=== PATIENT | female | born 1995 | race Caucasian/White ===

== ENCOUNTER 2017-12-20 13:16 | Emergency (ER) | payer BC ==
[2017-12-20 13:34] VITALS: BP 140/75
--- NOTE | 2017-12-20 13:43 | UC ---
Complaint Female HPI - HPI Summary HPI Summary: A 22 y/o F presents to [facility] with urinary frequency onset past week. Patient notes that shes urinating a typical amount. She states approx 3 months ago, she was having frequency with some urinary pressure. She was seen at [facility], and they found blood in her urine. They recommended repeat follow-up which she hasnt been able to do. Associated sx: urinary pressure. Denies dysuria, vaginal discharge and bleeding, back pain. MC: 12/02/17. PMHx: ovarian cysts. Non-smoker. Drinks ETOH. No drugs. - History Of Current Complaint Chief Complaint: UCGU Stated Complaint: URINARY COMPLAINT Time Seen by Provider: 12/20/17 13:21 Hx Obtained From: Patient Hx Last Menstrual Period: 12/02 Onset/Duration: Lasting Weeks, Still Present Severity Currently: Moderate Pain Intensity: 5 Pain Scale Used: 0-10 Numeric Associated Signs And Symptoms: Negative: Fever, Back Pain, Vaginal Bleeding/ Discharge, Vaginal Discharge - Allergies/Home Medications Allergies/Adverse Reactions: Allergies Allergy/AdvReac Type Severity Reaction Status Date / Time amoxicillin [From Augmentin] Allergy Intermediate Hives Verified 12/20/17 13:34 clavulanic acid Allergy Intermediate Hives Verified 12/20/17 13:34 [From Augmentin] Home Medications: Home Medications ALPRAZolam [Xanax] 0.5 mg PO SEE INSTRUCTIONS PRN 12/20/17 [History Confirmed ] Etonogestrel [Nexplanon] 68 mg PERCUTAN DAILY WITH MEAL 12/20/17 [History Confirmed 12/20/17] Lurasidone(*) [Latuda] 40 mg PO DAILY WITH MEAL 12/20/17 [History Confirmed ] PMH/Surg Hx/FS Hx/Imm Hx Previously Healthy: Yes Other Respiratory History: neg: COPD Other GI/ History: pos: ovarian cysts - Surgical History Surgical History: None - Family History Known Family History: Positive: Diabetes, Other - lung CA, kidney stones - Social History Occupation: Employed Part-time, Student Lives: Dormitory/Roommates Alcohol Use: Weekly Substance Use Type: None Smoking Status (MU): Never Smoked Tobacco Review of Systems Constitutional: Negative - fever Genitourinary: Negative - vaginal discharge/bleeding, dysuria, Frequency, Other - pos: urinary pressure Musculoskeletal: Negative - back pain All Other Systems Reviewed And Are Negative: Yes Physical Exam - Summary Physical Exam Summary: VITAL SIGNS: Reviewed. GENERAL: Patient is a well-developed and nourished FEMALE who is lying comfortable in the stretcher. Patient is not in any acute respiratory distress. HEAD AND FACE: Normocephalic EYES: PERRLA, EOMI x 2. EARS: Hearing grossly intact. MOUTH: Oropharynx within normal limits. NECK: Supple, trachea is midline, no adenopathy, no JVD, no carotid bruit. CHEST: Symmetric, no tenderness at palpation LUNGS: Clear to auscultation bilaterally. No wheezing or crackles. CVS: Regular rate and rhythm, S1 and S2 present, no murmurs or gallops appreciated. ABDOMEN: Soft, non-tender. Bowel sounds are normal. No abdominal abnormal pulsations. EXTREMITIES: Full ROM in all major joints, no edema, no cyanosis or clubbing. NEURO: Alert and oriented x 3. No acute neurological deficits. Speech is normal and follows commands. SKIN: Dry and warm Triage Information Reviewed: Yes Vital Signs: Initial Vital Signs Temp 98.2 F 12/20/17 13:27 Pulse 85 12/20/17 13:27 Resp 18 12/20/17 13:27 BP 140/75 12/20/17 13:27 Pulse Ox 100 12/20/17 13:27 Vital Signs Reviewed: Yes Complaint Female Dx - Course Course Of Treatment: The patient was found to have increased BP in UC. The patient will follow up with PCP for better control of BP. . Patient is a 22-year-old female who presents to the urgent care with chief complaint of having dysuria and urinary frequency. Urinalysis positive for UTI. Patient was placed in Bactrim. Patient was discharged home with follow-up with PCP. - Differential Dx/Diagnosis Provider Diagnoses: Urinary tract infection Discharge - Sign-Out/Discharge Documenting (check all that apply): Patient Departure - DC All imaging exams completed and their final reports reviewed: No Studies - Discharge Plan Condition: Stable Disposition: HOME Prescriptions: Sulfamethox/Trimethoprim DS* [Bactrim DS 800/160 TAB*] 1 tab PO BID #20 tab Patient Education Materials: Urinary Tract Infection in Women (ED) Referrals: No Primary Care Phys,NOPCP [Primary Care Provider] - [facility] [place] [facility] [Outside] Additional Instructions: Take medications as instructed and adhere to plan Take Acetaminophen or ibuprofen for pain or fever Increase your fluid intake Return to the or go to the emergency department if symptoms worsen Follow-up with primary care physician in next 2-3 days FOLLOW UP WITH YOUR PRIMARY CARE PROVIDER WITHIN ONE WEEK FOR HIGH BLOOD PRESSURE NOTED TODAY. - Billing Disposition and Condition Condition: STABLE Disposition: Home - Attestation Statements Document Initiated by Scribe: Yes Documenting Scribe: Casa Man Provider For Whom Scribe is Documenting (Include Credential): Armand Ralph MD Scribe Attestation: Casa Baires, scribed for Armand Ralph MD on 12/20/17 at 1435. Scribe Documentation Reviewed: Yes Provider Attestation: The documentation as recorded by the Casa sharma accurately reflects the service I personally performed and the decisions made by Armand hudson MD Lab Results - Lab Results Lab Results: 12/20/17 13:39 POC Urine Color Yellow POC Urine Clarity Turbid POC Urine pH 7.0 POC Ur Specif [place] >= 1.030 POC Urine Protein 2+ A POC Ur Glucose (UA) Negative POC Urine Ketones Negative POC Urine Blood 2+ A POC Urine Nitrite Positive A POC Urine Bilirubin Negative POC Urine Urobilinogen 0.2 POC U Leukocyte Esteras 3+ A
--- NOTE | 2017-12-21 16:10 | UC ---
- Progress Note Progress Note: 12/21/2017 Urine culture positive for E.coli. Pt Rx Bactrim PO which cover E.coli. Awaiting for culture sensitivity. No change Sheila Keen PA-C Discharge - Sign-Out/Discharge Documenting (check all that apply): Patient Departure - D/c home All imaging exams completed and their final reports reviewed: No Studies - Discharge Plan Condition: Stable Disposition: HOME Prescriptions: Sulfamethox/Trimethoprim DS* [Bactrim DS 800/160 TAB*] 1 tab PO BID #20 tab Patient Education Materials: Urinary Tract Infection in Women (ED) Referrals: [facility] [place] [facility] [Outside] No Primary Care Phys,NOPCP [Primary Care Provider] - Additional Instructions: Take medications as instructed and adhere to plan Take Acetaminophen or ibuprofen for pain or fever Increase your fluid intake Return to the UC or go to the emergency department if symptoms worsen Follow-up with primary care physician in next 2-3 days FOLLOW UP WITH YOUR PRIMARY CARE PROVIDER WITHIN ONE WEEK FOR HIGH BLOOD PRESSURE NOTED TODAY. - Billing Disposition and Condition Condition: STABLE Disposition: Home
== END 2017-12-20 13:53 | disposition home or self-care (01) ==
LOC: UCEAST 13:16
DX: N39.0 Urinary tract infection, site not specified (principal); R03.0 Elevated blood-pressure reading, without diagnosis of hypertension; B96.20 Unspecified Escherichia coli [E. coli] as the cause of diseases classified elsewhere; Z88.1 Allergy status to other antibiotic agents; Z88.0 Allergy status to penicillin
CPT/HCPCS: 81003; 87077; 87086; 87186; 99212; G0463

== ENCOUNTER 2018-02-03 12:23 | Emergency (ER) | payer BC ==
--- NOTE | 2018-02-03 13:12 | ED ---
Psychiatric Complaint - HPI Summary HPI Summary: Patient is a 23 y/o F w/ c/o alcohol intoxication and SI. She arrived in a wheelchair and was covered in vomit. She states that she wants to . Patient notes that she drank 9 shots of vodka this morning due to failing the NCLEX exam again. In the room, she reports that she feels dizzy. She denies any other attempts of self-harm or consuming any other substances today. On triage, pain is denied, nothing is noted to aggravate/alleviate Sx. Home medications and allergies are reviewed. - History Of Current Complaint Chief Complaint: EDMentalHealth Time Seen by Provider: 02/03/18 12:30 Hx Obtained From: Patient Hx Last Menstrual Period: 12/02 Onset/Duration: Sudden Onset, Lasting Hours, Still Present Severity Currently: None - pain is denied Character: Depressed Aggravating Factor(s): Recent Stress - failing exam Alleviating Factor(s): Nothing Has Suicidal: Reports: Thoughts, With A Plan, Demonstrates Gesture - Allergies/Home Medications Allergies/Adverse Reactions: Allergies Allergy/AdvReac Type Severity Reaction Status Date / Time amoxicillin [From Augmentin] Allergy Intermediate Hives Verified 12/20/17 13:34 clavulanic acid Allergy Intermediate Hives Verified 12/20/17 13:34 [From Augmentin] PMH/Surg Hx/FS Hx/Imm Hx Endocrine/Hematology History: Denies: Hx Diabetes, Hx Thyroid Disease Cardiovascular History: Denies: Hx Hypertension Respiratory History: Denies: Hx Asthma, Hx Chronic Obstructive Pulmonary Disease (COPD) GI History: Denies: Hx Ulcer Infectious Disease History: No Infectious Disease History: Denies: Hx Hepatitis, Hx Human Immunodeficiency Virus (HIV), Traveled Outside the [place] in Last 30 Days - Family History Known Family History: Positive: Diabetes, Other - lung CA, kidney stones - Social History Alcohol Use: Weekly Alcohol Amount: today, 9 shots vodka Substance Use Type: Reports: None Smoking Status (MU): Never Smoked Tobacco Review of Systems Positive: Vomiting, Nausea Neurological: Other - dizziness Positive: Depressed, Other - SI All Other Systems Reviewed And Are Negative: Yes Physical Exam - Summary Physical Exam Summary: Appearance: The patient is well-nourished in no acute distress and in no acute pain. Skin: The skin is warm and dry and skin color reflects adequate perfusion. HEENT: The head is normocephalic and atraumatic. The pupils are equal and reactive. The conjunctivae are clear and without drainage. Nares are patent and without drainage. Mouth reveals moist mucous membranes and the throat is without erythema and exudate. The external ears are intact. The ear canals are patent and without drainage. The tympanic membranes are intact. Neck: The neck is supple with full range of motion and non-tender. There are no carotid bruits. There is no neck vein distension. Respiratory: Chest is non-tender. Lungs are clear to auscultation and breath sounds are symmetrical and equal. Cardiovascular: Heart is regular rate and rhythm. There is no murmur or rub auscultated. There is no peripheral edema and pulses are symmetrical and equal. Abdomen: The abdomen is soft and non-tender. There are normal bowel sounds heard in all four quadrants and there is no organomegaly palpated. Musculoskeletal: There is no back tenderness noted. Extremities are non-tender with full range of motion. There is good capillary refill. There is no peripheral edema or calf tenderness elicited. Neurological: Patient is alert and oriented to person, place and time. The patient has symmetrical motor strength in all four extremities. Cranial nerves are grossly intact. Deep tendon reflexes are symmetrical and equal in all four extremities. Psychiatric: The patient does not exhibit any anxiety. SI expressed. Triage Information Reviewed: Yes Vital Signs On Initial Exam: Initial Vitals Temp Pulse Resp BP Pulse Ox 97.2 F 93 16 143/88 98 02/03/18 12:41 02/03/18 12:41 02/03/18 12:41 02/03/18 12:41 02/03/18 12:41 Vital Signs Reviewed: Yes Diagnostics - Vital Signs Vital Signs Temp Pulse Resp BP Pulse Ox 02/03/18 12:41 97.2 F 93 16 143/88 98 - Laboratory Result Diagrams: 02/03/18 13:24 02/03/18 13:24 Lab Statement: Any lab studies that have been ordered have been reviewed, and results considered in the medical decision making process. Re-Evaluation - Re-Evaluation First Eval Re-Evaluation Time: 16:37 Comment: Patient was medically cleared for MHE. Course/Dx - Course Course Of Treatment: Ms. Christy presented intoxicated and emotionally upset. She has had a situational stressor and got depressed and drank alcohol this morning. There was no sign of trauma and she was allowed to sober up and underwent a mental health eval. They felt that she was appropriate for admission but had no beds and at this point we are awaiting transfer. - Differential Dx/Clinical Impression Provider Diagnosis: Suicidal ideation, Alcohol intoxication, Depression - Physician Notifications Discussed Care Of Patient With: Dejah Mccartney Time Discussed With Above Provider: 19:10 Instructed by Provider To: Other - 1909 - Patient's case was reviewed by Dr. Mccartney. Due to the impulsive and unstable nature of the patient, she cannot be discharged. However, as there [place] no [place] [facility], she will be transferred to another facility. Discharge - Sign-Out/Discharge Documenting (check all that apply): Sign-Out Patient Signing out patient TO: Slim Riggs Receiving patient FROM: Slim Velazquez - Discharge Plan Referrals: No Primary Care Phys,NOPCP [Primary Care Provider] - - Attestation Statements Document Initiated by Scribe: Yes Documenting Scribe: Rome Sanon Provider For Whom Haseeb is Documenting (Include Credential): Slim Velazquez MD Scribe Attestation: Rome Baires , scribed for Slim Velazquez MD on 02/03/18 at 2124. Scribe Documentation Reviewed: Yes Provider Attestation: The documentation as recorded by the Rome sharma accurately reflects the service I personally performed and the decisions made by me, Slim Velazquez MD
[2018-02-03 13:34] LABS: ABS Basophils 0 10^3/ul (0-0.2); ABS Eosinophils 0.1 10^3/ul (0-0.6); ABS Lymphocytes 2.9 10^3/ul (1.0-4.8); ABS Monocytes 0.6 10^3/ul (0-0.8); ABS Neutrophils 4.5 10^3/ul (1.5-7.7); ABS Nucleated RBC 0 10^3/ul; Eosinophil % 1.2 % (0-6); Hematocrit 39 % (35-47); Hemoglobin 12.8 g/dl (12.0-16.0); Mean Corpuscular HGB Conc 33 g/dl (31-36); Mean Corpuscular Hemoglobin 27 pg (27-31); Mean Corpuscular Volume 82 fL (80-97); Mean Platelet Volume 7.5 um3 (7.4-10.4); Nucleated Red Blood Cells % 0.2; Platelet Count 306 10^3/ul (150-450); Red Blood Count 4.74 10^6/ul (4.00-5.40); Red Cell Distribution Width 15 % (10.5-15); White Blood Count 8.2 10^3/ul (3.5-10.8)
[2018-02-03 13:51] LABS: EGFR Non-African American 122.6 (>60)
[2018-02-03 16:49] LABS: Urine Appearance Clear; Urine Blood Negative (Negative); Urine Color Yellow; Urine Ketones Trace (Negative); Urine Protein Negative (Negative); Urine Specific Gravity 1.012 (1.010-1.030); Urine Urobilinogen Negative (Negative)
[2018-02-03] MEDS ORDERED: Ibuprofen TAB* 400 MG ONE (20:07)
[2018-02-03] MEDS ORDERED: Acetaminophen TAB* 325 MG ONE (20:07)
[2018-02-03] MEDS ORDERED: Ondansetron INJ* 2 MG/ML VIAL ONE (20:07)
[2018-02-04 02:04] VITALS: BP 126/72
--- NOTE | 2018-02-04 02:39 | ED ---
Progress - Progress Note Progress Note: Pt has been evaluated and will be transferred to [facility]. Re-Evaluation - Re-Evaluation First Eval Re-Evaluation Time: 16:37 Comment: Patient was medically cleared for MHE. Course/Dx - Course Course Of Treatment: The pt is being transferred to [facility]. - Diagnoses Provider Diagnoses: Suicidal ideation, Alcohol intoxication, Depression - Provider Notifications Time Discussed With Above Provider: 19:10 Discharge - Sign-Out/Discharge Documenting (check all that apply): Patient Departure, Receiving Sign-Out Receiving patient FROM: Slim Velazquez - Discharge Plan Condition: Stable Disposition: [facility] Referrals: [facility] [place] [facility] [Outside] - Attestation Statements Document Initiated by Scribe: Yes Documenting Scribe: Micaela Miles Provider For Whom Scribe is Documenting (Include Credential): Slim Riggs MD. Scribe Attestation: Micaela Baires, scribed for Slim Riggs MD. on 02/04/18 at 0240.
== END 2018-02-04 01:45 | disposition short-term general hospital (02) ==
LOC: ED 12:23
DX: R45.851 Suicidal ideations (principal); F10.129 Alcohol abuse with intoxication, unspecified; F32.9 Major depressive disorder, single episode, unspecified; Z88.1 Allergy status to other antibiotic agents; Z88.0 Allergy status to penicillin; Z79.899 Other long term (current) drug therapy
CPT/HCPCS: 36415; 80053; 80307; 80320; 80329; 81003; 84443; 84702; 85025; 93005; 99285; A9270-GY; G0480; J2405

== ENCOUNTER 2018-06-09 11:37 | Emergency (ER) | payer BC ==
[2018-06-09 11:47] VITALS: BP 136/87
--- NOTE | 2018-06-09 12:20 | UC ---
Throat Pain/Nasal Gen HPI - HPI Summary HPI Summary: 23 y/o female presents to the urgent care c/o sore throat , fatigue for the past week. Pain with swallowing is 3/10. She has low grade fever at the first day of symptoms. She has not taken anything to alleviate symptoms. Her roommate was Dx with [place] and strep 2 days ago. Pt denies fever now, SOB, chest pain, abdominal pain, N/V/D. She has decrease appetite, but she is drinking fluids. c - History of Current Complaint Chief Complaint: UCRespiratory Stated Complaint: THROAT PAIN Time Seen by Provider: 06/09/18 12:18 Hx Obtained From: Patient Hx Last Menstrual Period: 3 wks ago Onset/Duration: Gradual Onset, Lasting Weeks - 1 week Severity: Mild Pain Intensity: 4 - sore throat Pain Scale Used: 0-10 Numeric Cough: Nonproductive Associated Signs & Symptoms: Positive: Dysphagia, Fever - at the beginign of symptoms w/ low grade fever - Epiglottits Risk Factors Epiglottis Risk Factors: Negative - Allergies/Home Medications Allergies/Adverse Reactions: Allergies Allergy/AdvReac Type Severity Reaction Status Date / Time amoxicillin [From Augmentin] Allergy Intermediate Hives Verified 06/09/18 11:47 clavulanic acid Allergy Intermediate Hives Verified 06/09/18 11:47 [From Augmentin] Home Medications: Home Medications ARIPiprazole TAB* [Abilify TAB*] 1 tab PO DAILY 06/09/18 [History Confirmed 01/17] PMH/Surg Hx/FS Hx/Imm Hx Previously Healthy: Yes - Pt denies PMHX - Surgical History Surgical History: None - Family History Known Family History: Positive: Diabetes, Other - lung CA, kidney stones - Social History Occupation: Employed Full-time Lives: With Family Alcohol Use: Occasionally Alcohol Amount: today, 9 shots vodka Substance Use Type: Prescribed Smoking Status (MU): Never Smoked Tobacco Review of Systems All Other Systems Reviewed And Are Negative: Yes Constitutional: Positive: Negative Skin: Positive: Negative Eyes: Positive: Negative ENT: Positive: Sore Throat Respiratory: Positive: Cough - dry Cardiovascular: Positive: Negative, Palpitations Gastrointestinal: Positive: Negative Genitourinary: Positive: Negative Motor: Positive: Negative Neurovascular: Positive: Negative Musculoskeletal: Positive: Myalgia Neurological: Positive: Negative Psychological: Positive: Negative Is Patient Immunocompromised?: No Physical Exam - Summary Physical Exam Summary: VITAL SIGNS: Reviewed. GENERAL: Patient is a well developed and nourished female who is sitting comfortable in the examining table. Patient is not in any acute respiratory distress. HEAD AND FACE: No signs of trauma. No ecchymosis, hematomas or skull depressions. No sinus tenderness. EYES: PERRLA, EOMI x 2, No injected conjunctiva, no nystagmus. No photophobia. EARS: Hearing grossly intact. Ear canals and tympanic membranes are within normal limits. MOUTH: Positive pharynx with no erythema, no exudates, mild palatal petechiae. B/L tonsillar enlargement with no exudate. Uvula in midline. NECK: Supple, trachea is midline, Positive anterior cervical lymphadenopathy, no JVD, no carotid bruit, no c-spine tenderness, neck with full ROM. No meningeal signs, no Kernig's or brudzinskis signs. CHEST: Symmetric, no tenderness at palpation LUNGS: Clear to auscultation bilaterally. No wheezing or crackles. CVS: Regular rate and rhythm, S1 and S2 present, no murmurs or gallops appreciated. ABDOMEN: Soft, non-tender. No signs of distention. No rebound no guarding, and no masses palpated. Bowel sounds are normal. EXTREMITIES: FROM in all major joints, no edema, no cyanosis or clubbing. NEURO: Alert and oriented x 3. No acute neurological deficits. Speech is normal and follows commands. SKIN: Dry and warm Triage Information Reviewed: Yes Vital Signs: Initial Vital Signs Temp 99.0 F 06/09/18 11:44 Pulse 88 06/09/18 11:44 Resp 12 06/09/18 11:44 BP 136/87 06/09/18 11:44 Pulse Ox 100 06/09/18 11:44 Throat Pain/Nasal Course/Dx - Course Course Of Treatment: 23 y/o female presents to the urgent care c/o sore throat , fatigue for the past week. Pain with swallowing is 3/10. She has low grade fever at the first day of symptoms. She has not taken anything to alleviate symptoms. Her roommate was Dx with [place] and strep 2 days ago. Pt denies fever now, SOB, chest pain, abdominal pain, N/V/D. She has decrease appetite, but she is drinking fluids. Hx obtained. Rapid strep ordered, result: negative. Pt declines Monospot to r/o Mononucleosis. Pt w/ a Viral pharyngitis.Pt Rx ibuprofen PO to alleviates symptoms of pain and swelling. Advised on hand washing to avoid spreading. Pt advised to rest, eat well and avoid strenuous exercise. If symptoms do not improve or worsen advised to return to the urgent care or f/u with her PCP for further evaluation and treatment. Pt understood and agreed - Differential Dx/Diagnosis Differential Diagnosis/HQI/PQRI: Influenza, Mononucleosis, Pharyngitis, Sinusitis, Tonsillitis, URI Provider Diagnosis: Viral pharyngitis Discharge - Sign-Out/Discharge Documenting (check all that apply): Patient Departure - d/c home All imaging exams completed and their final reports reviewed: No Studies - Discharge Plan Condition: Stable Disposition: HOME Prescriptions: Ibuprofen TAB* [Motrin TAB* 600 MG] 600 mg PO Q6H PRN #30 tab PRN Reason: Pain Patient Education Materials: Pharyngitis (ED) Referrals: [facility] [place]Outside] - 3 Days Additional Instructions: 1-Please take ibuprofen PO q6-8hrs prn as instructed after meals to alleviate pain and swelling. Increase fluid intake, eat well, rest and avoid strenuous exercise 2-If symptoms do not improve or worsen please return to the urgent care or f/u with your PCP in 3 days for further evaluation and treatment. - Billing Disposition and Condition Condition: STABLE Disposition: Home
== END 2018-06-09 12:42 | disposition home or self-care (01) ==
LOC: UCEAST 11:37
DX: J02.9 Acute pharyngitis, unspecified (principal); Z88.0 Allergy status to penicillin; Z88.8 Allergy status to other drugs, medicaments and biological substances
CPT/HCPCS: 87651; 99212; G0463

== ENCOUNTER 2018-11-23 12:20 | Emergency (ER) | payer BC ==
[2018-11-23 12:30] VITALS: BP 132/90
--- NOTE | 2018-11-23 13:26 | UC ---
FLU HPI - HPI Summary HPI Summary: 23-year-old healthy female who presents with 2 days of cough, congestion, and sore throat. Patient states she noticed myalgias, as well as a dry cough, sinus congestion, and a sore throat. Patient also noticed spots on her tonsils. Patient reports that she feels fatigued. Patient also reporting mild shortness of breath with a dry cough. Patient reports feeling chest tightness with coughing but denies chest pain. No history of cardiac problems in herself or blood clots. Patient denies smoking. - History of Current Complaint Chief Complaint: UCGeneralIllness Stated Complaint: CHEST Time Seen by Provider: 11/23/18 12:33 Hx Last Menstrual Period: 11/19/18 Pain Intensity: 6 - Allergy/Home Medications Allergies/Adverse Reactions: Allergies Allergy/AdvReac Type Severity Reaction Status Date / Time amoxicillin [From Augmentin] Allergy Intermediate Hives Verified 11/23/18 12:30 clavulanic acid Allergy Intermediate Hives Verified 11/23/18 12:30 [From Augmentin] PMH/Surg Hx/FS Hx/Imm Hx Previously Healthy: Yes - Surgical History Surgical History: None - Family History Known Family History: Positive: Diabetes, Other - lung CA, kidney stones - Social History Alcohol Use: Occasionally Alcohol Amount: today, 9 shots vodka Substance Use Type: None Smoking Status (MU): Never Smoked Tobacco Review of Systems All Other Systems Reviewed And Are Negative: Yes ENT: Positive: Sore Throat, Sinus Congestion, Sinus Pain/Tenderness Respiratory: Positive: Shortness Of Breath, Cough Cardiovascular: Positive: Negative Musculoskeletal: Positive: Myalgia Physical Exam - Summary Physical Exam Summary: Constitutional: Well-developed, Well-nourished, Alert. (-) Distressed Skin: Warm, Dry HENT: Normocephalic; Atraumatic. Nasal congestion, tonsillar erythema w/ tonsilloliths Eyes: Conjunctiva normal Neck: Musculoskeletal ROM normal neck. (-) JVD, (-) Stridor Cardio: Rhythm regular, rate normal, Heart sounds normal; Intact distal pulses; Radial pulses are 2+ and symmetric. (-) Murmur Pulmonary/Chest wall: Effort normal. (-) Respiratory distress, (-) Wheezes, (-) Rales Abd: Soft, (-) tenderness, (-) Distension, (-) Guarding, (-) Rebound Musculoskeletal: (-) Edema Lymph: (+) Cervical adenopathy Neuro: Alert, Oriented x3 Psych: Mood and affect Normal Vital Signs: Initial Vital Signs Temp 37.0 C 11/23/18 12:27 Pulse 93 11/23/18 12:27 Resp 17 11/23/18 12:27 BP 132/90 11/23/18 12:27 Pulse Ox 100 11/23/18 12:27 Diagnostics - EKG Cardiac Rate: NL - Time 12:37 PM. Sinus tach rate of 85, T-wave inversions in lead 3 Summary of EKG Findings: 12:37 PM sinus rate 85, normal axis, normal NM and QTc , T-wave inversions in lead III, no ST changes Re-Evaluation - Re-Evaluation First Eval Comment: Chest x-ray without evidence of pneumonia. Patient ambulated in the department without distress patient discharged home with symptomatic control Flu Course/Dx - Course Course Of Treatment: 23-year-old female who presents with URI-like symptoms. Regarding shortness of breath suspect this is all viral upper respiratory given clear lungs, normal vitals and easy work of breathing on exam. We'll check a chest x-ray to rule out pneumonia. EKG sinus without evidence of ischemia and no chest pain. No history of blood clots or risk factors for blood clots, not tachycardic, tachypneic or hypoxic. - Differential Dx/Diagnosis Provider Diagnosis: Upper respiratory infection Discharge - Sign-Out/Discharge Documenting (check all that apply): Patient Departure All imaging exams completed and their final reports reviewed: Yes - Discharge Plan Condition: Stable Disposition: HOME Patient Education Materials: Upper Respiratory Infection (ED) Referrals: [facility] [Outside] Additional Instructions: You were seen in the emergency department for upper respiratory symptoms Your chest x-ray did not show pneumonia. Your heart tracing was normal If any studies were not completed at the time of discharge you will be called with the relevant results. Please follow up with your primary care doctor in next 2-3 days and go to emergency department for chest pain, trouble breathing or worsening or concerning symptoms. - Billing Disposition and Condition Condition: STABLE Disposition: Home
== END 2018-11-23 13:35 | disposition home or self-care (01) ==
LOC: UCEAST 12:20
DX: J06.9 Acute upper respiratory infection, unspecified (principal)
CPT/HCPCS: 71046; 99211; G0463

== ENCOUNTER 2019-07-06 13:04 | Emergency (ER) | payer BC ==
[2019-07-06 13:15] VITALS: BP 135/77
--- NOTE | 2019-07-06 13:28 | UC ---
Back Pain HPI - HPI Summary HPI Summary: patient fell from bar stool approximately 10 day ago and injured "tail bone". has a small black and blue norm on R buttock for few days painful when first standing up and sitting, has to lean to L when sitting to avoid pain, has been taking ibuprofen 600mg with little relief no lower back, neck or thoracic pain, denies head injury denies blood in urine or bowel/bladder incontinence - History of Current Complaint Chief Complaint: UCBackPain Stated Complaint: TAILBONE PAIN FROM FALL Time Seen by Provider: 07/06/19 13:16 Hx Obtained From: Patient Hx Last Menstrual Period: 3 weeks ago ?: No Onset/Duration: Sudden Onset Timing: Intermittent Severity Initially: Severe Severity Currently: Mild Pain Intensity: 0 Back Pain: Is Discrete @ - tail bone Character: Sharp, Throbbing Aggravating Factor(s): Other - sitting, standing up Alleviating Factor(s): Rest, Position, OTC Meds Associated Signs And Symptoms: Positive: Bruising. Negative: Weakness, Abdominal Pain, Bladder Incontinence, Bowel Incontinence - Allergies/Home Medications Allergies/Adverse Reactions: Allergies Allergy/AdvReac Type Severity Reaction Status Date / Time amoxicillin [From Augmentin] Allergy Intermediate Hives Verified 07/06/19 13:15 clavulanic acid Allergy Intermediate Hives Verified 07/06/19 13:15 [From Augmentin] Home Medications: Home Medications Etonogestrel [Nexplanon] 68 mg PERCUTAN DAILY WITH MEAL 12/20/17 [History Confirmed 07/06/19] Ibuprofen TAB* [Motrin TAB* 600 MG] 600 mg PO Q6H PRN #30 tab 06/09/18 [Rx Confirmed 07/06/19] Cariprazine 3 mg CAP (NF) [VRAYLAR 3 mg CAP (NF)] 1 tab PO DAILY 07/06/19 [ History Confirmed 07/06/19] PMH/Surg Hx/FS Hx/Imm Hx Previously Healthy: Yes Psychological History: Bipolar Disorder - Surgical History Surgical History: None - Family History Known Family History: Positive: Diabetes, Other - lung CA, kidney stones - Social History Occupation: Employed Full-time Lives: With Family Alcohol Use: Occasionally Alcohol Amount: today, 9 shots vodka Substance Use Type: Prescribed Smoking Status (MU): Never Smoked Tobacco Have You Smoked in the Last Year: No Review of Systems All Other Systems Reviewed And Are Negative: Yes Constitutional: Positive: Negative Respiratory: Positive: Negative Cardiovascular: Positive: Negative Musculoskeletal: Negative: Decreased ROM Neurological/Mental Status: Positive: Negative Psychological: Positive: Negative Is Patient Immunocompromised?: No Physical Exam Triage Information Reviewed: Yes Appearance: Well-Appearing, No Pain Distress, Well-Nourished Vital Signs: Initial Vital Signs Temp 98.1 F 07/06/19 13:12 Pulse 82 07/06/19 13:12 Resp 16 07/06/19 13:12 BP 135/77 07/06/19 13:12 Pulse Ox 100 07/06/19 13:12 Vital Signs Reviewed: Yes Respiratory Exam: Normal Respiratory: Positive: Lungs clear Cardiovascular Exam: Normal Cardiovascular: Positive: RRR Musculoskeletal Exam: Other - pain with pressure tail bone Neurological Exam: Normal Psychological Exam: Normal Skin Exam: Normal Diagnostics - Radiology No standard instances Radiology Interpretation Completed By: Radiologist - no fracture of coccyx Back Pain Course/Dx - Differential Dx/Diagnosis Differential Diagnosis/HQI/PQRI: Fracture, Strain, Other - contusion Provider Diagnosis: Contusion of coccyx Discharge ED - Sign-Out/Discharge Documenting (check all that apply): Patient Departure All imaging exams completed and their final reports reviewed: Yes - Discharge Plan Condition: Good Disposition: HOME Patient Education Materials: Contusion in Adults (ED) Referrals: No Primary Care Phys,NOPCP [Primary Care Provider] - [facility] [Outside] - 1 Week (if not improving) Additional Instructions: keep pressure off tail bone use ibuprofen as directed for pain return if your symptoms worsen - Billing Disposition and Condition Condition: GOOD Disposition: Home
== END 2019-07-06 14:45 | disposition home or self-care (01) ==
LOC: UCEAST 13:04
DX: S30.0XXA Contusion of lower back and pelvis, initial encounter (principal); Z88.0 Allergy status to penicillin; W17.89XA Other fall from one level to another, initial encounter; Y92.9 Unspecified place or not applicable
CPT/HCPCS: 72220; 99211; G0463